=== PATIENT | male | born 1975 | race Caucasian/White ===

== ENCOUNTER 2020-06-03 17:38 | Emergency (ER) | payer MEDICAID ==
[~2020-06-03] VITALS: Ht 177.8 cm; Wt 134.3 kg
[2020-06-03 17:51] VITALS: Ht 177.8 cm; Wt 134.3 kg
[2020-06-03 18:35] LABS: BASOPHIL % 0.5 % (0-2); PLATELET COUNT 241 x10^3mcL (130-400); RED CELL DISTRIBUTION WIDTH 13.6 % (11.5-14.5)
[2020-06-03 19:04] LABS: CALCIUM 9.3 mg/dL (8.5-10.1); CARBON DIOXIDE 29.3 mmol/L (21-32); CHLORIDE SERUM 101 mmol/L (98-107); CREATININE SERUM 0.9 mg/dL (0.7-1.3); GFR1 > 60 mL/min; GLUCOSE SERUM 122 mg/dL (74-106); POTASSIUM SERUM 3.3 mmol/L (3.5-5.1); SODIUM SERUM 137 mmol/L (136-145)
[2020-06-03 19:14] LABS: ALBUMIN 3.5 g/dL (3.4-5.0); ALKALINE PHOSPHATASE 165 U/L (46-116); AST/SGOT 707 U/L (15-37); BILIRUBIN TOTAL 2.6 mg/dL (0.20-1.00); TOTAL PROTEIN, SERUM 7.5 g/dL (6.4-8.2)
[2020-06-03 19:21] LABS: ALT/SGPT 1404 U/L (16-63)
[2020-06-03 19:54] LABS: LIPASE 231 IU/L (73-393)
[2020-06-03 21:08] VITALS: BP 127/86
== END 2020-06-03 21:08 | disposition home or self-care (01) ==
LOC: ED 17:38
PROVIDERS: Emergency Medicine
DX: R11.2 Nausea with vomiting, unspecified (principal); H53.8 Other visual disturbances; R07.89 Other chest pain
CPT/HCPCS: J7030; Q0092

== ENCOUNTER 2020-10-22 08:09 | Emergency (ER) | payer MEDICAID ==
[~2020-10-22] VITALS: Ht 180.3 cm; Wt 130.6 kg
[~2020-10-22 08:09] MED LIST: FORTAMET500 M1 PO; PRI20 PO
[2020-10-22 08:16] VITALS: Ht 180.3 cm; Wt 130.6 kg
[2020-10-22 09:40] VITALS: BP 149/95
== END 2020-10-22 09:40 | disposition home or self-care (01) ==
LOC: ED 08:09
DX: M54.5 Low back pain (principal); G89.29 Other chronic pain; M25.512 Pain in left shoulder; M51.36 Other intervertebral disc degeneration, lumbar region